=== PATIENT | female | born 1935 | race Caucasian/White ===

== ENCOUNTER 2019-02-08 15:38 | Inpatient (IN) | payer MEDICARE, OTHER ==
[~2019-02-08] VITALS: Ht 165.1 cm; Wt 70.7 kg
[~2019-02-08 15:38] MED LIST: ALIR150P SQ; BUSP10TA2 PO; CARV3.1260 PO; CHOL100062 PO; MAGN27TA4 PO; NIFE30TA23 PO; OLME20TA20 PO; OMEG1CAP2 PO; RANO10002 PO; RIVA10TA PO; SODI1TAB2 PO
[2019-02-08] MEDS ORDERED: SOD CHLORIDE 0.9% 500 ML IV STA (15:54)
[2019-02-08] MEDS ORDERED: KETOROLAC 15 MG INJ IV STA (15:54)
--- NOTE | 2019-02-08 15:58 | ERD ---
ER Documentation Chief Complaint Chief Complaint HPI This is an 83-year-old woman complaining of left buttock and hip pain status pos t mechanical fall while walking down her hallway with the assistance of some neighbors. She states she lost balance and fell onto her bottom and then could not get up afterwards. The episode was witnessed there was no loss of consciousness, no head or neck injury, no complaints of chest pain or shortness of breath. Patient was transported here by EMS without further complications ROS All systems reviewed and are negative except as per history of present illness. Medications Home Meds Reported Medications Buspirone Hcl* (Buspirone Hcl*) Unknown Strength Tab, 1 TAB PO BID, TAB 02/08/19 Magnesium Gluconate (Mag-G) 27 Mg Tablet, 27 MG PO BID, TAB 02/08/19 Cholecalciferol* (Vitamin D3*) 1,000 Unit Tablet, 1000 UNIT PO DAILY, TAB 02/08/19 [place]-3 Acid Ethyl Esters (Lovaza) 1 Gm Capsule, 2 GM PO BID, CAP 02/08/19 Sodium Chloride* (Sodium Chloride*) 1 Gm Tablet, 1 GM PO BID, TAB 02/08/19 Alirocumab (Praluent Pen) 150 Mg/1 Ml Pen.injctr, 150 MG SQ Q 14 DAYS 02/08/19 Ranolazine* (Ranexa*) 1,000 Mg Tab.sr.12h, 1000 MG PO Q12, TAB 02/08/19 Rivaroxaban* (Xarelto*) 10 Mg Tablet, 10 MG PO DAILY, TAB 02/08/19 Olmesartan Medoxomil (Benicar) 20 Mg Tablet, 20 MG PO DAILY, #30 TAB 02/08/19 Carvedilol* (Carvedilol*) 3.125 Mg Tablet, 3.125 MG PO BID, #60 TAB 02/08/19 Nifedipine* (Nifedipine ER*) 30 Mg Tablet.sa, 30 MG PO DAILY, TAB.SA 02/08/19 Allergies Allergies: Coded Allergies: No Known Allergy (Unverified , 02/08/19) PMhx/Soc Hypertension FmHx Family History: No diabetes Physical Exam Vitals Vital Signs Date Temp Pulse Resp B/P (MAP) Pulse Ox O2 O2 Flow FiO2 Time Delivery Rate 02/08/19 98.2 69 18 177/78 92 15:55 (111) Per nurse's records Physical Exam GENERAL: Well-developed, well-nourished, well-hydrated, in no apparent distress, looks nontoxic in appearance HEENT: Moist mucous membranes, pink conjunctiva, no cervical spine tenderness or step-off deformities NEURO: Alert and oriented 3, pupils equal round reactive to light, no focal deficits or facial asymmetry, moving all extremities the patient has trouble lifting the left lower extremity off the bed due to pain CARDIAC: Regular rate and rhythm, no murmurs rubs or gallops LUNGS: Clear bilaterally no wheezing crackles or stridor SKIN: Warm and dry to touch, no abrasions, no obvious hematomas or lacerations EXTREMITIES: No clubbing cyanosis or edema, calves are bilaterally symmetrical. Distal pulses equal and bilateral PSYCH: Normal affect without agitation or irritability Result Diagram: 02/08/19 1605 02/08/19 1604 Results 24 hrs Laboratory Tests Test 02/08/19 16:04 02/08/19 16:05 Sodium Level 135 mmol/L Potassium Level 5.0 mmol/L Chloride Level 99 mmol/L Carbon Dioxide Level 26 mmol/L Anion Gap 10 Blood Urea Nitrogen 26 mg/dl Creatinine 0.98 mg/dl Est Glomerular Filtrat Rate mL/min mL/min Glucose Level 103 mg/dl Calcium Level 9.6 mg/dl Total Bilirubin 0.5 mg/dl Direct Bilirubin 0.00 mg/dl Indirect Bilirubin 0.5 mg/dl Aspartate Amino Transf (AST/SGOT) 34 IU/L Alanine Aminotransferase (ALT/SGPT) 31 IU/L Alkaline Phosphatase 59 IU/L Troponin I < 0.012 ng/ml Total Protein 8.4 g/dl Albumin 4.3 g/dl Globulin 4.10 g/dl Albumin/Globulin Ratio 1.04 Lipase 153 U/L White Blood Count 13.3 10^3/ul Red Blood Count 4.17 10^6/ul Hemoglobin 13.8 g/dl Hematocrit 40.6 % Mean Corpuscular Volume 97.4 fl Mean Corpuscular Hemoglobin 33.1 pg Mean Corpuscular Hemoglobin Concent 34.0 g/dl Red Cell Distribution Width 13.1 % Platelet Count 179 10^3/UL Mean Platelet Volume 10.5 fl Immature Granulocytes % 0.600 % Neutrophils % 84.2 % Lymphocytes % 8.6 % Monocytes % 4.7 % Eosinophils % 1.4 % Basophils % 0.5 % Nucleated Red Blood Cells % 0.0 /100WBC Immature Granulocytes # 0.080 10^3/ul Neutrophils # 11.2 10^3/ul Lymphocytes # 1.1 10^3/ul Monocytes # 0.6 10^3/ul Eosinophils # 0.2 10^3/ul Basophils # 0.1 10^3/ul Nucleated Red Blood Cells # 0.0 10^3/ul Current Medications Medications Dose Sig/Anaya Start Time Status Last (Trade) Ordered Route PRN Stop Time Admin Dose Reason Admin Sodium 500 ml @ Q1H STAT 02/08/19 DC 02/08/19 Chloride 500 mls/hr IV 15:54 16:37 02/08/19 16:53 Ketorolac 15 mg ONCE STAT 02/08/19 DC 02/08/19 Tromethamine IV 15:54 16:37 (Toradol) 02/08/19 15:56 Procedures/MDM IV line was established patient was placed on cardiac rn rhythm strip revealed a sinus rhythm at about 80 bpm with upright P and T waves. Patient was afebrile Administered 500 cc normal saline IV and Toradol 15 mg IV. EKG performed, read by me revealed a normal sinus rhythm at 67 bpm, left axis deviation, first-degree AV block, right ventricular conduction delay QRS duration 102 ms, no concerning ST elevations or depressions noted One AP view of the chest performed, read by me reveals no acute infiltrates, normal mediastinum, sharp costophrenic and cardiac borders, no air under the diaphragm. Otherwise unremarkable chest x-ray. Three-view x-ray of the left hip was performed, read by me reveals left inferior pubic ramus fracture transverse, minimally displaced, no other fracture dislocation noted X-ray Pelvis 1V Interpreted by me: Bones: Left inferior ramus fracture Joints: No dislocation Foreign body: None CBC and electrolytes were normal, liver function tests are normal, troponin was negative Orthopedic on-call was consulted, patient will be admitted to [facility] for continued medical management and surgical consultation. Departure Diagnosis: Primary Impression: Inferior pubic ramus fracture Encounter type: initial encounter Fracture type: closed Laterality: left Qualified Codes: S32.592A - Other specified fracture of left pubis, initial encounter for closed fracture Additional Impression: Unable to ambulate Condition: LUANNE Quinteros MD Feb 08, 2019 15:57
[2019-02-08] MEDS ORDERED: ACETAMINOPHEN 325 MG TAB PO PRN (19:00)
[2019-02-08] MEDS ORDERED: ONDANSETRON 4 MG INJ IV PRN (19:00)
[2019-02-08] MEDS ORDERED: NACL 0.9% 3 ML SYG IV SCH (19:00)
[2019-02-08] MEDS ORDERED: CEFTRIAXONE 1 GM/50 ML (PMX) 50 ML IVPB ONE (22:00)
[2019-02-08 22:45] VITALS: Ht 165.1 cm; Wt 70.7 kg
[2019-02-08 22:50] VITALS: BP 160/75; PULSE 75; RESP 18
--- NOTE | 2019-02-08 23:49 | HP ---
Date/Time of Note Date/Time of Note DATE: 02/08/19 TIME: 23:49 Assessment/Plan VTE Prophylaxis Pharmacological prophylaxis: heparin Lines/Catheters IV Catheter Type (from Nrsg): Saline Lock Assessment/Plan Assessment/Plan 1. Right superior pubic ramus fracture: Status post fall -Pain management -Awaiting Ortho evaluation 2. Reported " shaking" of both upper and lower extremities: ? Seizure -Patient is actually supposed to have an MRI of the brain as outpatient next week -Obtain head CT and MRI of the brain especially given reported injury to left side of her head when she fell down -EEG 3. UTI -IV antibiotic, IV fluid -Follow-up culture results 4. Leukocytosis: Secondary to UTI and reactive from #1 5. Atrial fibrillation: Sinus, rate controlled -Continue home med -Hold Xarelto until Ortho evaluation 6. Hypertension: Adjust BP meds as needed 7. CHF, chronic -Follow-up 2D echo results -Continue home med Result Diagram: 02/08/19 1605 02/08/19 1604 Results 24hrs Laboratory Tests Test 02/08/19 16:04 02/08/19 16:05 02/08/19 18:20 Sodium Level 135 Potassium Level 5.0 Chloride Level 99 Carbon Dioxide Level 26 Anion Gap 10 Blood Urea Nitrogen 26 H Creatinine 0.98 Est Glomerular Filtrat Rate mL/min Glucose Level 103 Calcium Level 9.6 Total Bilirubin 0.5 Direct Bilirubin 0.00 Indirect Bilirubin 0.5 Aspartate Amino 34 Transf (AST/SGOT) Alanine 31 Aminotransferase (ALT/SGPT) Alkaline Phosphatase 59 Troponin I < 0.012 Total Protein 8.4 H Albumin 4.3 Globulin 4.10 H Albumin/Globulin Ratio 1.04 Lipase 153 White Blood Count 13.3 H Red Blood Count 4.17 L Hemoglobin 13.8 Hematocrit 40.6 Mean Corpuscular Volume 97.4 Mean Corpuscular Hemoglobin 33.1 H Mean Corpuscular 34.0 Hemoglobin Concent Red Cell Distribution Width 13.1 Platelet Count 179 Mean Platelet Volume 10.5 H Immature Granulocytes % 0.600 H Neutrophils % 84.2 H Lymphocytes % 8.6 L Monocytes % 4.7 Eosinophils % 1.4 Basophils % 0.5 Nucleated Red Blood Cells % 0.0 Immature Granulocytes # 0.080 H Neutrophils # 11.2 H Lymphocytes # 1.1 Monocytes # 0.6 Eosinophils # 0.2 Basophils # 0.1 Nucleated Red Blood Cells # 0.0 Urine Color YELLOW Urine Clarity SLIGHTLY CLOUDY A Urine pH 7.0 Urine Specific [place] 1.005 Urine Ketones NEGATIVE Urine Nitrite NEGATIVE Urine Bilirubin NEGATIVE Urine Urobilinogen NEGATIVE Urine Leukocyte Esterase 2+ H Urine Microscopic RBC 3 Urine Microscopic WBC 37 H Urine Squamous MODERATE Epithelial Cells Urine Bacteria FEW A Urine Hemoglobin 1+ H Urine Glucose NEGATIVE Urine Total Protein NEGATIVE HPI/ROS Admit Date/Time Admit Date/Time Feb 08, 2019 at 17:46 Hx of Present Illness Patient is an 83-year-old female with a history of hypertension, atrial fibrillation on Xarelto, CHF who was brought to the ER complaining of left hip pain status post fall. Patient felt dizzy and felt her leg gave out before she fell. She also reported having had generalized tremor in both upper and lower extremities. She attempted to sit on the chair, but it broke and she fell. She felt pain on the left side of her hip. She also reported hitting the left side of her head. Denied loss of consciousness. Patient reported that she has been having this tremors and frequent falls for quite some time now. She is actually supposed to have an MRI of the brain tomorrow somewhere in [place]. When presented to ER, blood pressure was 177/78. WBC 13.3. UA consistent with UTI. X-ray shows left superior pubic ramus fracture. Chest x-ray shows mild cardiomegaly and mild pulmonary vascular congestion. PMH/Family/Social Past Medical History Medical History: other (See HPI) Medications Current Medications IV Flush (NS 3 ml) 3 ml PER PROTOCOL IV ; Start 02/08/19 at 19:00 Ondansetron HCl (Zofran Inj) 4 mg Q6H PRN IV NAUSEA/VOMITING; Start 02/08/19 at 19:00 Acetaminophen (Tylenol Tab) 650 mg Q6H PRN PO .PAIN 1-3 OR TEMP; Start 02/08/19 at 19:00 Acetaminophen/ Hydrocodone Bitart ([place] (5/325)) 1 tab Q6H PRN PO .PAIN 4-6; Start 02/08/19 at 19:00 Morphine Sulfate (morphine) 2 mg Q4H PRN IV .PAIN 7-10; Start 02/08/19 at 19:00 Coded Allergies: No Known Allergy (Unverified , 02/08/19) Past Surgical History Past Surgical Hx: other (HPI) Family History Significant Family History: no pertinent family hx Social History Alcohol Use: none Smoking Status: Never smoker Drug Use: none Exam/Review of Systems Vital Signs Vitals Vital Signs Date Temp Pulse Resp B/P (MAP) Pulse Ox O2 O2 Flow FiO2 Time Delivery Rate 02/08/19 71 16 144/73 99 Nasal 2.0 22:21 (96) Cannula 02/08/19 98.0 21:57 Exam Constitutional: other (No acute distress) Head: normocephalic, atraumatic Eyes: EOMI, PERRL Respiratory: clear to auscultation, normal air movement Cardiovascular: regular rate and rhythm, nl pulses Gastrointestinal: soft, non-tender Extremities: other (Minimal left hip pain pain elicited with movement of left lower extremity) ZEKE SOMMER MD Feb 08, 2019 23:49
[2019-02-09 08:03] VITALS: BP 118/56; PULSE 70; RESP 18
[2019-02-09] MEDS ORDERED: LOSARTAN 50 MG TAB PO SCH ×2 (09:00→21:00)
[2019-02-09] MEDS ORDERED: HEPARIN 5,000 UNIT/1 ML VIAL SC SCH (09:00)
[2019-02-09] MEDS: SODIUM CHLORIDE 1 GM TAB PO SCH ×2 (09:42→21:48)
[2019-02-09] MEDS: MAGNESIUM CHLORIDE (SR) 64 MG TAB PO SCH ×2 (09:42→21:49)
[2019-02-09] MEDS: FISH OIL 1,000 MG CAP PO SCH ×2 (09:42→21:50)
[2019-02-09] MEDS: NIFEdipine (XL) 30 MG TAB PO SCH (09:43)
[2019-02-09] MEDS: RANOLAZINE (SR) 500 MG TAB PO SCH ×2 (09:43→21:49)
[2019-02-09] MEDS: HYDROCODONE/APAP (5/325) TAB PO PRN ×2 (09:57→18:17)
--- NOTE | 2019-02-09 11:29 | PN ---
Date/Time of Note Date/Time of Note DATE: 02/09/19 TIME: 11:28 Assessment/Plan VTE Prophylaxis Risk score (from Nsg)>0 risk: 10 SCD applied (from Nsg): Yes Pharmacological prophylaxis: LMWH, other (xarelto on hold) Lines/Catheters IV Catheter Type (from Nrsg): Saline Lock Urinary Cath still in place: No Assessment/Plan Hospital Course S : has pain with movement but is ok if she's lying still O: Constitutional: alert, oriented, pleasant, elderly, comfortable? Head: atraumatic, normocephalic Neck: non-tender, supple Respiratory: clear to auscultation Cardiovascular: regular rate and rhythm Gastrointestinal: S/ NT / ND / +BS Extremities: no edema, good radial pulses, no limb length discrepancy assessment and plan: 83-year-old female who was brought into the emergency room after an accidental fall currently admitted and managed as follows: 1. Status post accidental fall with concern for nondisplaced fracture left superior pubic rami 2. Left-sided hip pain likely secondary to #1 3. Chronic dyslipidemia 4. Paroxysmal atrial fibrillation, currently sinus and rate controlled -Patient on Xarelto for anticoagulation but this is on hold until orthopedic review 5. Chronic vitamin D deficiency on supplement 6. Chronic hypomagnesemia on supplementation 7. Chronic hyponatremia on salt tablets 8. Coronary disease on Ranexa 8. Chronic depression on BuSpar Plan: -Continue supportive care and pain control, try to optimize patient's pain regimen -Also ensure a good bowel regimen -Spoke with on orthopedic surgery, Dr. Kolb. He will reevaluate patient, but after reviewing imaging, has authorized patient for ambulation with physical therapy and weightbearing as tolerated. Also get acute rehab eval Continue all other supportive care Adjust antihypertensives for optimization Further interventions per course. Result Diagram: 02/09/19 0507 02/09/19 0507 Results 24hrs Laboratory Tests Test 02/08/19 16:04 02/08/19 16:05 02/08/19 18:20 02/09/19 05:07 Sodium Level 135 135 Potassium Level 5.0 4.2 Chloride Level 99 100 Carbon Dioxide 26 29 Level Anion Gap 10 6 Blood Urea 26 H 21 H Nitrogen Creatinine 0.98 0.82 Est Glomerular Filtrat Rate mL/min Glucose Level 103 120 Calcium Level 9.6 9.2 Total Bilirubin 0.5 1.1 Direct Bilirubin 0.00 0.00 Indirect 0.5 1.1 Bilirubin Aspartate Amino 34 27 Transf (AST/SGOT) Alanine 31 24 Aminotransferase (ALT/SGPT) Alkaline 59 53 Phosphatase Troponin I < 0.012 Total Protein 8.4 H 7.6 Albumin 4.3 3.7 Globulin 4.10 H 3.90 H Albumin/Globulin 1.04 0.94 Ratio Lipase 153 White Blood Count 13.3 H 7.7 # Red Blood Count 4.17 L 4.28 Hemoglobin 13.8 14.2 Hematocrit 40.6 41.8 Mean Corpuscular 97.4 97.7 Volume Mean Corpuscular 33.1 H 33.2 H Hemoglobin Mean Corpuscular 34.0 34.0 Hemoglobin Concen t Red Cell 13.1 13.1 Distribution Width Platelet Count 179 180 Mean Platelet 10.5 H 11.1 H Volume Immature 0.600 H 0.400 Granulocytes % Neutrophils % 84.2 H 77.1 H Lymphocytes % 8.6 L 12.1 L Monocytes % 4.7 6.0 Eosinophils % 1.4 3.7 Basophils % 0.5 0.7 Nucleated Red 0.0 0.0 Blood Cells % Immature 0.080 H 0.030 Granulocytes # Neutrophils # 11.2 H 5.9 Lymphocytes # 1.1 0.9 Monocytes # 0.6 0.5 Eosinophils # 0.2 0.3 Basophils # 0.1 0.1 Nucleated Red 0.0 0.0 Blood Cells # Urine Color YELLOW Urine Clarity SLIGHTLY CLOUDY A Urine pH 7.0 Urine Specific 1.005 [place] Urine Ketones NEGATIVE Urine Nitrite NEGATIVE Urine Bilirubin NEGATIVE Urine NEGATIVE Urobilinogen Urine Leukocyte 2+ H Esterase Urine Microscopic 3 RBC Urine Microscopic 37 H WBC Urine Squamous MODERATE Epithelial Cells Urine Bacteria FEW A Urine Hemoglobin 1+ H Urine Glucose NEGATIVE Urine Total NEGATIVE Protein Hemoglobin A1c 4.9 Magnesium Level 2.0 Triglycerides 81 Level Cholesterol Level 204 H LDL Cholesterol, 134 Calculated HDL Cholesterol 54 Cholesterol/HDL 3.7 Ratio Thyroid 1.430 Stimulating Hormone (TSH) Exam/Review of Systems Exam Vitals Vital Signs Date Temp Pulse Resp B/P (MAP) Pulse Ox O2 O2 Flow FiO2 Time Delivery Rate 02/09/19 98.1 70 18 118/56 98 Room Air 08:03 (76) 02/08/19 2.0 22:21 Intake and Output 02/08/19 02/08/19 02/09/19 1515:00 23:00 07:00 IntakeIntake Total 50 ml 100 ml OutputOutput Total 800 ml BalanceBalance 50 ml -700 ml Results Results 24hrs Laboratory Tests Test 02/08/19 16:04 02/08/19 16:05 02/08/19 18:20 02/09/19 05:07 Sodium Level 135 135 Potassium Level 5.0 4.2 Chloride Level 99 100 Carbon Dioxide 26 29 Level Anion Gap 10 6 Blood Urea 26 H 21 H Nitrogen Creatinine 0.98 0.82 Est Glomerular Filtrat Rate mL/min Glucose Level 103 120 Calcium Level 9.6 9.2 Total Bilirubin 0.5 1.1 Direct Bilirubin 0.00 0.00 Indirect 0.5 1.1 Bilirubin Aspartate Amino 34 27 Transf (AST/SGOT) Alanine 31 24 Aminotransferase (ALT/SGPT) Alkaline 59 53 Phosphatase Troponin I < 0.012 Total Protein 8.4 H 7.6 Albumin 4.3 3.7 Globulin 4.10 H 3.90 H Albumin/Globulin 1.04 0.94 Ratio Lipase 153 White Blood Count 13.3 H 7.7 # Red Blood Count 4.17 L 4.28 Hemoglobin 13.8 14.2 Hematocrit 40.6 41.8 Mean Corpuscular 97.4 97.7 Volume Mean Corpuscular 33.1 H 33.2 H Hemoglobin Mean Corpuscular 34.0 34.0 Hemoglobin Concen t Red Cell 13.1 13.1 Distribution Width Platelet Count 179 180 Mean Platelet 10.5 H 11.1 H Volume Immature 0.600 H 0.400 Granulocytes % Neutrophils % 84.2 H 77.1 H Lymphocytes % 8.6 L 12.1 L Monocytes % 4.7 6.0 Eosinophils % 1.4 3.7 Basophils % 0.5 0.7 Nucleated Red 0.0 0.0 Blood Cells % Immature 0.080 H 0.030 Granulocytes # Neutrophils # 11.2 H 5.9 Lymphocytes # 1.1 0.9 Monocytes # 0.6 0.5 Eosinophils # 0.2 0.3 Basophils # 0.1 0.1 Nucleated Red 0.0 0.0 Blood Cells # Urine Color YELLOW Urine Clarity SLIGHTLY CLOUDY A Urine pH 7.0 Urine Specific 1.005 [place] Urine Ketones NEGATIVE Urine Nitrite NEGATIVE Urine Bilirubin NEGATIVE Urine NEGATIVE Urobilinogen Urine Leukocyte 2+ H Esterase Urine Microscopic 3 RBC Urine Microscopic 37 H WBC Urine Squamous MODERATE Epithelial Cells Urine Bacteria FEW A Urine Hemoglobin 1+ H Urine Glucose NEGATIVE Urine Total NEGATIVE Protein Hemoglobin A1c 4.9 Magnesium Level 2.0 Triglycerides 81 Level Cholesterol Level 204 H LDL Cholesterol, 134 Calculated HDL Cholesterol 54 Cholesterol/HDL 3.7 Ratio Thyroid 1.430 Stimulating Hormone (TSH) Medications Medication Current Medications IV Flush (NS 3 ml) 3 ml PER PROTOCOL IV ; Start 02/08/19 at 19:00 Ondansetron HCl (Zofran Inj) 4 mg Q6H PRN IV NAUSEA/VOMITING; Start 02/08/19 at 19:00 Acetaminophen (Tylenol Tab) 650 mg Q6H PRN PO .PAIN 1-3 OR TEMP; Start 02/08/19 at 19:00 Acetaminophen/ Hydrocodone Bitart ([place] (5/325)) 1 tab Q6H PRN PO .PAIN 4-6 Last administered on 02/09/19 09:57; Admin Dose 1 TAB; Start 02/08/19 at 19:00 Morphine Sulfate (morphine) 2 mg Q4H PRN IV .PAIN 7-10; Start 02/08/19 at 19:00 Ceftriaxone Sodium 50 ml @ 100 mls/hr DAILY@2200 IVPB ; Start 02/09/19 at 22:00 Carvedilol (Coreg) 3.125 mg BID PO Last administered on 02/09/19 09:43; Admin Dose 3.125 MG; Start 02/09/19 at 09:00 Nifedipine (Procardia Xl) 30 mg DAILY PO Last administered on 02/09/19 09:43; Admin Dose 30 MG; Start 02/09/19 at 09:00 Ranolazine (Ranexa) 1,000 mg Q12 PO Last administered on 02/09/19 09:43; Admin Dose 1,000 MG; Start 02/09/19 at 09:00 Sodium Chloride (Nacl) 1 gm BID PO Last administered on 02/09/19 09:42; Admin Dose 1 GM; Start 02/09/19 at 09:00 Magnesium Chloride (Mag 64) 64 mg BID PO Last administered on 02/09/19 09:42; Admin Dose 64 MG; Start 02/09/19 at 09:00 Fish Oil (Fish Oil) 2,000 mg BID PO Last administered on 02/09/19at 09:42; Admin Dose 2,000 MG; Start 02/09/19 at 09:00 Heparin Sodium (Porcine) (Heparin (5000 Units/1ml)) 5,000 unit BID SC Last administered on 02/09/19at 09:46; Admin Dose 5,000 UNIT; Start 02/09/19 at 09:00 Losartan Potassium (Cozaar) 100 mg HS PO ; Start 02/09/19 at 21:00 ANDRESSA MCGEE Feb 09, 2019 11:29
[2019-02-09] MEDS: morphine 2 MG INJ IV PRN ×2 (12:22→17:05)
[2019-02-09] MEDS ORDERED: hydrALAzine 20 MG INJ IV PRN (13:00)
[2019-02-09] MEDS: DOCUSATE SODIUM 250 MG CAP PO SCH (13:34)
[2019-02-09 14:26] VITALS: BP 119/58; PULSE 67; RESP 18
[2019-02-09 20:27] VITALS: BP 114/59; PULSE 73; RESP 18
[2019-02-09] MEDS ORDERED: CEFTRIAXONE 1 GM/50 ML (PMX) 50 ML IVPB SCH (22:00)
[2019-02-10] VITALS (8 sets, daily range): BP systolic 108–140; BP diastolic 55–67; PULSE 61–78; RESP 15–20
[2019-02-10] MEDS: RANOLAZINE (SR) 500 MG TAB PO SCH (08:28)
[2019-02-10] MEDS: MAGNESIUM CHLORIDE (SR) 64 MG TAB PO SCH (08:28)
[2019-02-10] MEDS: DOCUSATE SODIUM 250 MG CAP PO SCH (08:28)
[2019-02-10] MEDS: SODIUM CHLORIDE 1 GM TAB PO SCH (08:31)
[2019-02-10] MEDS: FISH OIL 1,000 MG CAP PO SCH (08:31)
[2019-02-10] MEDS: NIFEdipine (XL) 30 MG TAB PO SCH (08:32)
[2019-02-10] MEDS: HYDROCODONE/APAP (5/325) TAB PO PRN (08:33)
[2019-02-10] MEDS ORDERED: ENOXAPARIN 40 MG/0.4 ML SYG SC SCH (09:00)
--- NOTE | 2019-02-10 12:06 | CONSI ---
Assessment/Plan Assessment/Plan Assessment/Plan (Recall) 83 F c/ reported Hx of afib and other comorbidities, who presents for evaluation following a recurrent fall. She notes episodic tremors that precipitate her falls, for which neurology is consulted. The clinical picture raises highest suspicion for recurrent syncope. Epilepsy is less likely.. MRI brain is reassuringly negative for acute intracranial pathology P: Orthostatic vitals Await EEG Consider asa daily moving forward, for primary stroke prevention in the setting of afib and frequent falls PT/OT as necessary Other management and supportive care per primary Will follow Consultation Date/Type/Reason Admit Date/Time Feb 08, 2019 at 17:46 Type of Consult Neurology Reason for Consultation tremors Requesting Provider: ANDRESSA MCGEE Date/Time of Note DATE: 02/10/19 TIME: 12:01 Hx of Present Illness 83 F c/ Hx fo afib, and other comorbidities, who presents for evaluation following a recurrent fall. Notes once monthly for more than 1 year episodes of dizziness, tremors, and falls.. First instance occurred in the context of severe hypernatremia.. Denies LOC.. Denies focal neurologic Sx otherwise. per HPI Objective Exam Vitals Vital Signs Date Temp Pulse Resp B/P (MAP) Pulse Ox O2 O2 Flow FiO2 Time Delivery Rate 02/10/19 98.6 69 20 126/60 95 11:19 (83) 02/10/19 Room Air 01:53 02/08/19 2.0 22:21 Intake and Output 02/09/19 02/09/19 02/10/19 1515:00 23:00 07:00 IntakeIntake Total 440 ml 290 ml 400 ml BalanceBalance 440 ml 290 ml 400 ml Exam PE: Gen Appearance: No Apparent Distress HEENT: Normocephalic Cardiovascular: Regular rate Abdomen: Soft Extremities: Dry NE: The patient was alert and oriented. Language was normal. Fund of knowledge was normal. Pupils were equal and reactive to light. There was no afferent pupillary defect. Visual orona were normal. Funduscopic examination was limited. Extra-ocular movements were full. Ptosis was absent. There was no nystagmus. Facial sensation was normal. Face was symmetric with normal strength. Hearing was intact. Palate movements were normal. Neck strength was normal. There was normal tongue bulk and speed of movement. Tone was normal. Muscle bulk was normal. I did not see fasciculations. Arms were strong; left leg was somewhat pain limited; right leg was strong. Vibration sensation was normal. Temperature and pinprick sensation was normal. Rapid alternating movements were normal. There was no dysmetria. There was no intention tremor. Gait was deferred due to bedrest. Arm and leg reflexes were symmetric. Jauregui's sign was absent. Plantar responses were flexor. Results Result Diagram: 02/10/1917 02/10/19 0517 Results 24hrs Laboratory Tests Test 02/10/19 05:17 White Blood Count 7.2 Red Blood Count 3.71 L Hemoglobin 12.4 Hematocrit 36.5 L Mean Corpuscular Volume 98.4 Mean Corpuscular Hemoglobin 33.4 H Mean Corpuscular Hemoglobin Concent 34.0 Red Cell Distribution Width 13.5 Platelet Count 144 Mean Platelet Volume 11.3 H Immature Granulocytes % 0.400 Neutrophils % 68.1 Lymphocytes % 16.7 Monocytes % 7.1 Eosinophils % 6.7 Basophils % 1.0 Nucleated Red Blood Cells % 0.0 Immature Granulocytes # 0.030 Neutrophils # 4.9 Lymphocytes # 1.2 Monocytes # 0.5 Eosinophils # 0.5 Basophils # 0.1 Nucleated Red Blood Cells # 0.0 Sodium Level 138 Potassium Level 4.4 Chloride Level 105 Carbon Dioxide Level 28 Anion Gap 5 Blood Urea Nitrogen 21 H Creatinine 0.81 Est Glomerular Filtrat Rate mL/min Glucose Level 104 Calcium Level 8.8 Phosphorus Level 3.0 Magnesium Level 1.9 Past Medical History Medical History: other (See HPI) Home Meds Reported Medications Buspirone Hcl* (Buspirone Hcl*) Unknown Strength Tab, 1 TAB PO BID, TAB 02/08/19 Magnesium Gluconate (Mag-G) 27 Mg Tablet, 27 MG PO BID, TAB 02/08/19 Cholecalciferol* (Vitamin D3*) 1,000 Unit Tablet, 1000 UNIT PO DAILY, TAB 02/08/19 [place]-3 Acid Ethyl Esters (Lovaza) 1 Gm Capsule, 2 GM PO BID, CAP 02/08/19 Sodium Chloride* (Sodium Chloride*) 1 Gm Tablet, 1 GM PO BID, TAB 02/08/19 Alirocumab (Praluent Pen) 150 Mg/1 Ml Pen.injctr, 150 MG SQ Q 14 DAYS 02/08/19 Ranolazine* (Ranexa*) 1,000 Mg Tab.sr.12h, 1000 MG PO Q12, TAB 02/08/19 Rivaroxaban* (Xarelto*) 10 Mg Tablet, 10 MG PO DAILY, TAB 02/08/19 Olmesartan Medoxomil (Benicar) 20 Mg Tablet, 20 MG PO DAILY, #30 TAB 02/08/19 Carvedilol* (Carvedilol*) 3.125 Mg Tablet, 3.125 MG PO BID, #60 TAB 02/08/19 Nifedipine* (Nifedipine ER*) 30 Mg Tablet.sa, 30 MG PO DAILY, TAB.SA 02/08/19 Medications Current Medications IV Flush (NS 3 ml) 3 ml PER PROTOCOL IV ; Start 02/08/19 at 19:00 Ondansetron HCl (Zofran Inj) 4 mg Q6H PRN IV NAUSEA/VOMITING; Start 02/08/19 at 19:00 Acetaminophen (Tylenol Tab) 650 mg Q6H PRN PO .PAIN 1-3 OR TEMP; Start 02/08/19 at 19:00 Acetaminophen/ Hydrocodone Bitart ([place] (5/325)) 1 tab Q6H PRN PO .PAIN 4-6 Last administered on 02/10/19 08:33; Admin Dose 1 TAB; Start 02/08/19 at 19:00 Morphine Sulfate (morphine) 2 mg Q4H PRN IV .PAIN 7-10 Last administered on 02/09/19at 17:05; Admin Dose 2 MG; Start 02/08/19 at 19:00 Ceftriaxone Sodium 50 ml @ 100 mls/hr DAILY@2200 IVPB Last administered on 02/09/19at 21:44; Admin Dose 100 MLS/HR; Start 02/09/19 at 22:00 Carvedilol (Coreg) 3.125 mg BID PO Last administered on 02/10/19 08:32; Admin Dose 3.125 MG; Start 02/09/19 at 09:00 Nifedipine (Procardia Xl) 30 mg DAILY PO Last administered on 02/10/19 08:32; Admin Dose 30 MG; Start 02/09/19 at 09:00 Ranolazine (Ranexa) 1,000 mg Q12 PO Last administered on 02/10/19 08:28; Admin Dose 1,000 MG; Start 02/09/19 at 09:00 Sodium Chloride (Nacl) 1 gm BID PO Last administered on 02/10/19 08:31; Admin Dose 1 GM; Start 02/09/19 at 09:00 Magnesium Chloride (Mag 64) 64 mg BID PO Last administered on 02/10/19 08:28; Admin Dose 64 MG; Start 02/09/19 at 09:00 Fish Oil (Fish Oil) 2,000 mg BID PO Last administered on 02/10/19 08:31; Admin Dose 2,000 MG; Start 02/09/19 at 09:00 Losartan Potassium (Cozaar) 100 mg HS PO Last administered on 02/09/19 21:50; Admin Dose 100 MG; Start 02/09/19 at 21:00 Docusate Sodium (Colace) 250 mg DAILY PO Last administered on 02/10/19 08:28; Admin Dose 250 MG; Start 02/09/19 at 13:00 Enoxaparin Sodium (Lovenox) 40 mg DAILY SC Last administered on 02/10/19 08:33; Admin Dose 40 MG; Start 02/10/19 at 09:00 Hydralazine HCl (Apresoline) 10 mg Q6H PRN IV abp>160mmhg; Start 02/09/19 at 13:00 Allergies: Coded Allergies: No Known Allergy (Unverified , 02/08/19) Past Surgical History Past Surgical Hx: other (HPI) Social History Alcohol Use: none Smoking Status: Never smoker Drug Use: none MAGGIE LARA Feb 10, 2019 12:06
[2019-02-10] MEDS ORDERED: HYDROCODONE/APAP (7.5/325) TAB PO PRN (12:30)
--- NOTE | 2019-02-10 13:16 | EEG ---
EEG NOTE Report Details DATE OF TEST: 02/09/19 HISTORY: The patient is a 83-year-old F who presents with episodic shaking and falls. This EEG is requested to evaluate for seizures. SEDATION: None. CONDITIONS OF RECORDING: This EEG was recorded digitally on the [employer] machine, using the International 10-20 System of electrodes plus anterior temporals and [place]. STATES SAMPLED: Wakefulness through stage II sleep. FINDINGS: During wakefulness, there is a 8 Hz posterior dominant rhythm, which attenuates normally with eye opening. There is a normal [id number] frequency-amplitude gradient. The remainder of the awake background is normal. Photic stimulation does not elicit any definite driving responses or epil eptiform discharges. Hyperventilation was not performed. The patient passed into sleep, reaching stage II, characterized by normal and symmetrical vertex waves and spindles. No asymmetries, focal abnormalities or epileptiform discharges were seen. IMPRESSION: Normal electroencephalogram during wakefulness and sleep. MAGGIE LARA Feb 10, 2019 13:16
--- NOTE | 2019-02-10 14:54 | DS ---
Date/Time of Note Date/Time of Note DATE: 02/10/19 TIME: 14:53 Discharge Summary Admission/Discharge Info Admit Date/Time Feb 08, 2019 at 17:46 Discharge Date/Time Discharge Diagnosis 83-year-old female who was brought into the emergency room after an accidental fall currently admitted and managed as follows: 1. Status post accidental fall with concern for nondisplaced fracture left superior pubic rami: non surgical per ortho 2. Left-sided hip pain likely secondary to #1 3. Chronic dyslipidemia 4. Paroxysmal atrial fibrillation, currently sinus and rate controlled -Patient on Xarelto for anticoagulation 5. Chronic vitamin D deficiency on supplement 6. Chronic hypomagnesemia on supplementation 7. Chronic hyponatremia on salt tablets 8. Coronary disease on Ranexa 8. Chronic depression on BuSpar . Patient Condition: Stable Consults Ortho:In freeman Kolb MD Neurology: Whitney Mayen MD . Hospital Course 81-year-old female with history of recurrent falls for the last 1-1/2 years who was brought in after another fall with left hip pain. She was found by imaging to have acute nondisplaced fractures in the mid left inferior pubic ramus and a high left superior pubic ramus. She also has some age-indeterminate nondisplaced fractures in the lateral left sacral ala and at the anterior inferior lateral right sacral ala. her fracturees were deemed non surgical by orthopedic surgery. The patient reported recurrent falls for more than a year and so neurology consultation was obtained.EEG was done that was normal. Patient was started on aspirin daily for primary stroke prevention in the setting of A. fib and frequent falls on recommended for orthopedic physical therapy per neurology. She was then evaluated for acute rehabilitation unit and accepted. She was also evaluated by orthopedic surgery cleared her for rehab. She is being discharged to the acute rehabilitation unit for continued management at this time. . Home Meds Reported Medications Buspirone Hcl* (Buspirone Hcl*) Unknown Strength Tab, 1 TAB PO BID, TAB 02/08/19 Magnesium Gluconate (Mag-G) 27 Mg Tablet, 27 MG PO BID, TAB 02/08/19 Cholecalciferol* (Vitamin D3*) 1,000 Unit Tablet, 1000 UNIT PO DAILY, TAB 02/08/19 [place]-3 Acid Ethyl Esters (Lovaza) 1 Gm Capsule, 2 GM PO BID, CAP 02/08/19 Sodium Chloride* (Sodium Chloride*) 1 Gm Tablet, 1 GM PO BID, TAB 02/08/19 Alirocumab (Praluent Pen) 150 Mg/1 Ml Pen.injctr, 150 MG SQ Q 14 DAYS 02/08/19 Ranolazine* (Ranexa*) 1,000 Mg Tab.sr.12h, 1000 MG PO Q12, TAB 02/08/19 Rivaroxaban* (Xarelto*) 10 Mg Tablet, 10 MG PO DAILY, TAB 02/08/19 Olmesartan Medoxomil (Benicar) 20 Mg Tablet, 20 MG PO DAILY, #30 TAB 02/08/19 Carvedilol* (Carvedilol*) 3.125 Mg Tablet, 3.125 MG PO BID, #60 TAB 02/08/19 Nifedipine* (Nifedipine ER*) 30 Mg Tablet.sa, 30 MG PO DAILY, TAB.SA 02/08/19 Follow-up Plan ARU . Primary Care Provider Not On Staff Doctor Time spent on discharge: > 30 minutes Pending Labs Laboratory Tests Test 02/10/19 05:17 White Blood Count 7.2 10^3/ul (4.8-10.8) Red Blood Count 3.71 10^6/ul (4.20-5.40) Hemoglobin 12.4 g/dl (12.0-16.0) Hematocrit 36.5 % (37.0-47.0) Mean Corpuscular Volume 98.4 fl (82.0-101.0) Mean Corpuscular Hemoglobin 33.4 pg (29.0-33.0) Mean Corpuscular Hemoglobin Concent 34.0 g/dl (32.0-37.0) Red Cell Distribution Width 13.5 % (11.5-14.5) Platelet Count 144 10^3/UL (140-415) Mean Platelet Volume 11.3 fl (7.4-10.4) Immature Granulocytes % 0.400 % (0.001-0.429) Neutrophils % 68.1 % (39.0-77.0) Lymphocytes % 16.7 % (15.0-51.0) Monocytes % 7.1 % (0.0-11.0) Eosinophils % 6.7 % (0.0-7.0) Basophils % 1.0 % (0.0-2.0) Nucleated Red Blood Cells % 0.0 /100WBC (0.0-0.0) Immature Granulocytes # 0.030 10^3/ul (0.0-0.031) Neutrophils # 4.9 10^3/ul (1.6-7.5) Lymphocytes # 1.2 10^3/ul (0.8-2.9) Monocytes # 0.5 10^3/ul (0.3-0.9) Eosinophils # 0.5 10^3/ul (0.0-0.5) Basophils # 0.1 10^3/ul (0.0-0.1) Nucleated Red Blood Cells # 0.0 10^3/ul (0.0-0.0) Sodium Level 138 mmol/L (135-144) Potassium Level 4.4 mmol/L (3.5-5.1) Chloride Level 105 mmol/L (97-110) Carbon Dioxide Level 28 mmol/L (21-31) Anion Gap 5 (5-13) Blood Urea Nitrogen 21 mg/dl (7-20) Creatinine 0.81 mg/dl (0.44-1.00) Est Glomerular Filtrat Rate mL/min mL/min (>60) Glucose Level 104 mg/dl (70-220) Calcium Level 8.8 mg/dl (8.4-10.2) Phosphorus Level 3.0 mg/dl (2.5-4.9) Magnesium Level 1.9 mg/dl (1.7-2.5) ANDRESSA MCGEE Feb 10, 2019 14:54
--- NOTE | 2019-02-10 16:53 | RADRPT ---
Echocardiogram Report Patient Name: IVORY FLORESPatient ID: [id number] : 1935 (83y 4m)Study Date: 02/09/2019 11:23:06 AM Gender: FAccession #: [id number] Tech: SN Location: [facility] 2 Ref.Physician: ZEKE SOMMER Height(Cm): BSA: Weight(Kg): Quality: AdequateOrder Physician: ZEKE SOMMER Account #: Procedures: Echocardiographic Report: Transthoracic echocardiogram with complete 2D, M-Mode, and doppler examination. Indications: Pre-op. Measurements: 2D/M Mode Doppler Measurement Value Normal Range Measurement Value Normal Range LVIDd 2D 3.1 [ 3.8 - 5.2 ] cm AV Peak Cesar 1.7 [ 100.0 - 170.0 ] cm/sec LVIDs 2D 2.0 [ 2.2 - 3.5 ] cm AV Peak PG 12.0 [ 2.0 - 9.0 ] mmHg LVPWd 2D 1.2 [ 0.6 - 0.9 ] cm LVOT Peak Cesar 1.3 [ 70.0 - 110.0 ] cm/sec IVSd 2D 1.2 [ 0.6 - 0.9 ] cm LVOT Peak PG 7.0 [ 2.0 - 6.0 ] mmHg IVS/LVPW 2D 1.0 ratio MV E Peak Cesar 0.6 [ 60.0 - 130.0 ] cm/sec AoR Diam 2D 2.2 [ 2.3 - 3.1 ] cm MV A Peak Cesar 0.8 [ 100.0 - 120.0 ] cm/sec LA/Ao 2D 1 ratio MV E/A 0.8 [ 0.8 - 1.5 ] ratio LA Dimen 2D 2.9 [ 2.7 - 3.8 ] cm MV Decel Time 201 [ 104 - 258 ] msec MV E/A 0.8 [ 0.8 - 1.5 ] ratio TR Peak Cesar 2.5 [ 100.0 - 280.0 ] cm/sec TR Peak PG 25.0 mmHg RVSP 28.0 [ 10.0 - 36.0 ] mmHg RA Pressure 3.0 mmHg Findings: Left Ventricle: Normal left ventricular systolic function. Normal left ventricular cavity size. Left ventricular wall thickness upper limits of normal. Ejection fraction is visually estimated at 60 %. Tissue Doppler/Mitral Doppler indices are consistent with impaired relaxation (Stage I diastolic dysfunction). Right Ventricle: Normal right ventricular size. Normal right ventricular systolic function. Left Atrium: The left atrium is normal in size. Right Atrium: The right atrium is normal in size. Mitral Valve: Mild mitral leaflet calcification. Mild mitral annular calcification. Trace mitral regurgitation. Aortic Valve: No significant aortic stenosis or insufficiency. Aortic cusps appear mildly calcified. Tricuspid Valve: Normal appearance of the tricuspid valve. The estimated Peak RVSP is 28 mmHg. There is mild tricuspid regurgitation. Pericardium: Normal pericardium with no significant pericardial effusion. Left pleural effusion seen. Aorta: Normal aortic root. IVC: Normal size and normal respiratory collapse consistent with normal right atrial pressure. Conclusions: Normal left ventricular systolic function. Normal left ventricular cavity size. Left ventricular wall thickness upper limits of normal. Ejection fraction is visually estimated at 60 %. Tissue Doppler/Mitral Doppler indices are consistent with impaired relaxation (Stage I diastolic dysfunction). Mild mitral leaflet calcification. Mild mitral annular calcification. Trace mitral regurgitation. Normal appearance of the tricuspid valve. The estimated Peak RVSP is 28 mmHg. There is mild tricuspid regurgitation. Electronically Signed By: Gilbert Fabian 2019-02-10 16:52:26 PDT
== END 2019-02-10 17:30 | DRG 536 ==
LOC: E/R 15:38 → MS1 17:46
PROVIDERS: ADMIT Internal Medicine; ATTEND Family Medicine
DX: S32.592A Other specified fracture of left pubis, initial encounter for closed fracture (principal); E87.1 Hypo-osmolality and hyponatremia; N39.0 Urinary tract infection, site not specified; I11.0 Hypertensive heart disease with heart failure; I50.9 Heart failure, unspecified; I48.0 Paroxysmal atrial fibrillation; R25.1 Tremor, unspecified; E78.5 Hyperlipidemia, unspecified; E55.9 Vitamin D deficiency, unspecified; E83.42 Hypomagnesemia; F32.9 Major depressive disorder, single episode, unspecified; W18.39XA Other fall on same level, initial encounter
CPT/HCPCS: 36415; 70450; 70551; 71045; 72170; 72192; 73510; 80048; 80053; 80061; 81001; 83036; 83690; 83735; 84100; 84443; 84484; 85025; 87086; 93005; 93306; 93880; 95819; 96374; 97116; 97161; 97530; J0696; J1644; J1650; J1885; J2270; J7040

== ENCOUNTER 2019-02-10 16:39 | Inpatient (IN) | payer MEDICARE, OTHER ==
[~2019-02-10] VITALS: Ht 154.9 cm; Wt 75.0 kg
[~2019-02-10 16:39] MED LIST changes: +OLME20TA19 PO; -OLME20TA20 PO
[2019-02-10 18:00] VITALS: BP 122/63; PULSE 77; RESP 20
[2019-02-10] MEDS ORDERED: PENDING SANTYL ORDER FOR WOUND CARE XX PRN (18:00)
[2019-02-10] MEDS ORDERED: MAGNESIUM HYDROXIDE 30ML CUP PO PRN (18:00)
[2019-02-10] MEDS ORDERED: LACTULOSE 30ML CUP PO PRN (18:00)
[2019-02-10] MEDS ORDERED: ACETAMINOPHEN 325 MG TAB PO PRN (18:00)
[2019-02-10] MEDS ORDERED: BISACODYL 10 MG SUPP PR PRN (18:00)
[2019-02-10] MEDS ORDERED: HYDROCODONE/APAP (5/325) TAB PO PRN (18:30)
[2019-02-10] MEDS ORDERED: morphine 2 MG INJ IV PRN (18:30)
[2019-02-10 18:46] VITALS: Ht 154.9 cm; Wt 75.0 kg
[2019-02-10 19:49] VITALS: BP 120/64; PULSE 75; RESP 18
[2019-02-10] MEDS: FISH OIL 1,000 MG CAP PO SCH (20:49)
[2019-02-10] MEDS: MAGNESIUM CHLORIDE (SR) 64 MG TAB PO SCH (20:49)
[2019-02-10] MEDS: RANOLAZINE (SR) 500 MG TAB PO SCH (20:55)
[2019-02-10] MEDS: DOCUSATE SODIUM 100 MG CAP PO SCH (21:00)
[2019-02-10] MEDS: SENNA TAB PO SCH (21:00)
[2019-02-10] MEDS: LOSARTAN 50 MG TAB PO SCH (21:00)
[2019-02-10] MEDS: SODIUM CHLORIDE 1 GM TAB PO SCH (21:29)
[2019-02-10 21:40] VITALS: BP 106/54; PULSE 70
[2019-02-10] MEDS ORDERED: CEFTRIAXONE 1 GM/50 ML (PMX) 50 ML IVPB ONE (22:00)
[2019-02-10 23:09] VITALS: BP 110/60; PULSE 67
[2019-02-11 02:00] VITALS: BP 114/62; PULSE 72; RESP 18
[2019-02-11 07:00] VITALS: BP 146/70; PULSE 71; RESP 18
[2019-02-11] MEDS: MAGNESIUM CHLORIDE (SR) 64 MG TAB PO SCH ×2 (08:21→20:48)
[2019-02-11] MEDS: RANOLAZINE (SR) 500 MG TAB PO SCH ×2 (08:21→20:49)
[2019-02-11] MEDS: FISH OIL 1,000 MG CAP PO SCH ×2 (08:21→20:47)
[2019-02-11] MEDS: RIVAROXABAN 10 MG TABLET PO SCH (08:21)
[2019-02-11] MEDS: BUSPIRONE 10 MG TAB PO SCH (08:21)
[2019-02-11] MEDS: CHOLECALCIFEROL 1,000 UNIT TAB PO SCH (08:22)
[2019-02-11] MEDS: DOCUSATE SODIUM 100 MG CAP PO SCH ×2 (08:22→20:50)
[2019-02-11] MEDS: SODIUM CHLORIDE 1 GM TAB PO SCH ×2 (08:22→20:48)
[2019-02-11] MEDS: NIFEdipine (XL) 30 MG TAB PO SCH (08:55)
[2019-02-11] MEDS: LOSARTAN 50 MG TAB PO SCH (08:57)
[2019-02-11] MEDS ORDERED: RIVAROXABAN 10 MG TABLET PO ONE (09:00)
[2019-02-11] MEDS ORDERED: NIFEdipine (XL) 30 MG TAB PO ONE (09:00)
[2019-02-11 14:00] VITALS: BP 157/69; PULSE 67; RESP 18
[2019-02-11 20:10] VITALS: BP 121/59; PULSE 64; RESP 18
[2019-02-11] MEDS: ATORVASTATIN 10 MG TAB PO SCH (20:49)
[2019-02-11] MEDS: SENNA TAB PO SCH (20:50)
[2019-02-12 02:37] VITALS: BP 116/56; PULSE 55; RESP 17
[2019-02-12 08:00] VITALS: BP 112/55; PULSE 71; RESP 20
[2019-02-12] MEDS: OXYCODONE/ACETAMINOPHEN (5/325) TAB PO PRN (09:07)
[2019-02-12] MEDS: RIVAROXABAN 10 MG TABLET PO SCH (09:37)
[2019-02-12] MEDS: MAGNESIUM CHLORIDE (SR) 64 MG TAB PO SCH ×2 (09:38→20:26)
[2019-02-12] MEDS: RANOLAZINE (SR) 500 MG TAB PO SCH ×2 (09:38→20:26)
[2019-02-12] MEDS: SODIUM CHLORIDE 1 GM TAB PO SCH ×2 (09:39→20:26)
[2019-02-12] MEDS: FISH OIL 1,000 MG CAP PO SCH ×2 (09:39→20:25)
[2019-02-12] MEDS: NIFEdipine (XL) 30 MG TAB PO SCH ×2 (09:39→10:01)
[2019-02-12] MEDS: DOCUSATE SODIUM 100 MG CAP PO SCH ×2 (09:55→20:26)
[2019-02-12] MEDS: CHOLECALCIFEROL 1,000 UNIT TAB PO SCH (09:56)
[2019-02-12] MEDS: BUSPIRONE 10 MG TAB PO SCH (09:56)
[2019-02-12] MEDS: LOSARTAN 50 MG TAB PO SCH (09:57)
[2019-02-12 14:00] VITALS: BP 115/60; PULSE 61; RESP 18
[2019-02-12 20:00] VITALS: BP 122/62; PULSE 68; RESP 18
[2019-02-12] MEDS: ATORVASTATIN 10 MG TAB PO SCH (20:26)
[2019-02-12] MEDS: SENNA TAB PO SCH (20:26)
[2019-02-13 02:00] VITALS: BP 118/63; PULSE 72; RESP 18
[2019-02-13] MEDS: OXYCODONE/ACETAMINOPHEN (5/325) TAB PO PRN ×2 (06:49→16:11)
[2019-02-13 07:30] VITALS: BP 147/70; PULSE 68; RESP 20
[2019-02-13] MEDS: FISH OIL 1,000 MG CAP PO SCH ×2 (08:42→21:37)
[2019-02-13] MEDS: RIVAROXABAN 10 MG TABLET PO SCH (08:42)
[2019-02-13] MEDS: LOSARTAN 50 MG TAB PO SCH (08:43)
[2019-02-13] MEDS: MAGNESIUM CHLORIDE (SR) 64 MG TAB PO SCH ×2 (08:43→21:34)
[2019-02-13] MEDS: SODIUM CHLORIDE 1 GM TAB PO SCH ×2 (08:44→21:33)
[2019-02-13] MEDS: BUSPIRONE 10 MG TAB PO SCH (08:44)
[2019-02-13] MEDS: NIFEdipine (XL) 30 MG TAB PO SCH (08:44)
[2019-02-13] MEDS: CHOLECALCIFEROL 1,000 UNIT TAB PO SCH (08:44)
[2019-02-13] MEDS: RANOLAZINE (SR) 500 MG TAB PO SCH ×2 (08:45→21:33)
[2019-02-13] MEDS: DOCUSATE SODIUM 100 MG CAP PO SCH ×2 (08:47→21:33)
[2019-02-13 14:00] VITALS: BP 123/59; PULSE 60; RESP 18
[2019-02-13 19:58] VITALS: BP 130/68; PULSE 66; RESP 18
[2019-02-13] MEDS: ATORVASTATIN 20 MG TAB PO SCH (21:00)
[2019-02-13] MEDS ORDERED: PRALUENT 150 MG/ML SC SCH (21:00)
[2019-02-13] MEDS: SENNA TAB PO SCH (21:37)
[2019-02-14 02:00] VITALS: BP 122/62; PULSE 68; RESP 18
[2019-02-14 07:53] VITALS: BP 126/65; PULSE 66; RESP 18
[2019-02-14] MEDS: NIFEdipine (XL) 30 MG TAB PO SCH (08:28)
[2019-02-14] MEDS: DOCUSATE SODIUM 100 MG CAP PO SCH ×2 (08:28→20:43)
[2019-02-14] MEDS: FISH OIL 1,000 MG CAP PO SCH ×2 (08:28→20:40)
[2019-02-14] MEDS: BUSPIRONE 10 MG TAB PO SCH (08:28)
[2019-02-14] MEDS: RANOLAZINE (SR) 500 MG TAB PO SCH ×2 (08:28→20:40)
[2019-02-14] MEDS: CHOLECALCIFEROL 1,000 UNIT TAB PO SCH (08:29)
[2019-02-14] MEDS: LOSARTAN 50 MG TAB PO SCH (08:29)
[2019-02-14] MEDS: RIVAROXABAN 10 MG TABLET PO SCH (08:29)
[2019-02-14] MEDS: SODIUM CHLORIDE 1 GM TAB PO SCH ×2 (08:29→20:40)
[2019-02-14] MEDS: MAGNESIUM CHLORIDE (SR) 64 MG TAB PO SCH ×2 (08:29→20:40)
[2019-02-14 14:50] VITALS: BP 138/68; PULSE 68; RESP 17
[2019-02-14 20:00] VITALS: BP 131/73; PULSE 74; RESP 18
[2019-02-14] MEDS: ATORVASTATIN 20 MG TAB PO SCH ×2 (20:40→20:48)
[2019-02-14] MEDS: SENNA TAB PO SCH (20:43)
[2019-02-15 02:18] VITALS: BP 134/64; PULSE 67; RESP 18
[2019-02-15 07:30] VITALS: BP 136/70; PULSE 67; RESP 18
[2019-02-15] MEDS: OXYCODONE/ACETAMINOPHEN (5/325) TAB PO PRN (08:47)
[2019-02-15] MEDS: SODIUM CHLORIDE 1 GM TAB PO SCH ×2 (09:00→20:54)
[2019-02-15] MEDS: NIFEdipine (XL) 30 MG TAB PO SCH (09:57)
[2019-02-15] MEDS: MAGNESIUM CHLORIDE (SR) 64 MG TAB PO SCH ×2 (09:57→20:54)
[2019-02-15] MEDS: CHOLECALCIFEROL 1,000 UNIT TAB PO SCH (09:57)
[2019-02-15] MEDS: RIVAROXABAN 10 MG TABLET PO SCH (09:57)
[2019-02-15] MEDS: LOSARTAN 50 MG TAB PO SCH (09:57)
[2019-02-15] MEDS: DOCUSATE SODIUM 100 MG CAP PO SCH ×2 (09:58→20:55)
[2019-02-15] MEDS: RANOLAZINE (SR) 500 MG TAB PO SCH ×2 (09:58→20:54)
[2019-02-15] MEDS: FISH OIL 1,000 MG CAP PO SCH ×2 (09:59→20:53)
[2019-02-15] MEDS: BUSPIRONE 10 MG TAB PO SCH (09:59)
[2019-02-15 14:00] VITALS: BP 138/69; PULSE 64; RESP 18
[2019-02-15] MEDS ORDERED: oxyCODONE 5 MG TAB PO PRN ×3 (14:00→20:00)
[2019-02-15] MEDS ORDERED: HYDROCODONE/APAP (5/325) TAB PO PRN ×2 (14:30)
[2019-02-15 20:00] VITALS: BP 147/65; PULSE 69; RESP 18
[2019-02-15] MEDS: SENNA TAB PO SCH (20:54)
[2019-02-16 01:55] VITALS: BP 137/65; PULSE 63; RESP 18
[2019-02-16] MEDS: BUSPIRONE 10 MG TAB PO SCH (08:24)
[2019-02-16] MEDS: RIVAROXABAN 10 MG TABLET PO SCH (08:24)
[2019-02-16] MEDS: DOCUSATE SODIUM 100 MG CAP PO SCH ×2 (08:24→21:47)
[2019-02-16] MEDS: CHOLECALCIFEROL 1,000 UNIT TAB PO SCH (08:24)
[2019-02-16] MEDS: SODIUM CHLORIDE 1 GM TAB PO SCH ×2 (08:24→21:48)
[2019-02-16] MEDS: MAGNESIUM CHLORIDE (SR) 64 MG TAB PO SCH ×2 (08:24→21:47)
[2019-02-16] MEDS: FISH OIL 1,000 MG CAP PO SCH ×2 (08:24→21:47)
[2019-02-16] MEDS: RANOLAZINE (SR) 500 MG TAB PO SCH ×2 (08:25→21:48)
[2019-02-16] MEDS: NIFEdipine (XL) 30 MG TAB PO SCH (08:25)
[2019-02-16] MEDS: LOSARTAN 50 MG TAB PO SCH (08:25)
[2019-02-16 08:40] VITALS: BP 134/61; PULSE 70; RESP 18
[2019-02-16] MEDS ORDERED: HYDROCODONE/APAP (5/325) TAB PO PRN (11:30)
[2019-02-16] MEDS: HYDROCODONE/APAP (5/325) TAB PO PRN (13:41)
[2019-02-16 20:00] VITALS: BP 147/68; PULSE 71; RESP 18
[2019-02-16] MEDS: SENNA TAB PO SCH (21:47)
[2019-02-17 02:00] VITALS: BP 146/70; PULSE 59; RESP 18
[2019-02-17 07:00] VITALS: BP 137/63; PULSE 65; RESP 18
[2019-02-17] MEDS: DOCUSATE SODIUM 100 MG CAP PO SCH ×2 (08:42→21:36)
[2019-02-17] MEDS: CHOLECALCIFEROL 1,000 UNIT TAB PO SCH (08:42)
[2019-02-17] MEDS: RANOLAZINE (SR) 500 MG TAB PO SCH ×2 (08:42→21:36)
[2019-02-17] MEDS: FISH OIL 1,000 MG CAP PO SCH ×2 (08:42→21:35)
[2019-02-17] MEDS: MAGNESIUM CHLORIDE (SR) 64 MG TAB PO SCH ×2 (08:42→21:36)
[2019-02-17] MEDS: SODIUM CHLORIDE 1 GM TAB PO SCH ×2 (08:42→21:35)
[2019-02-17] MEDS: BUSPIRONE 10 MG TAB PO SCH (08:43)
[2019-02-17] MEDS: LOSARTAN 50 MG TAB PO SCH (08:43)
[2019-02-17] MEDS: NIFEdipine (XL) 30 MG TAB PO SCH (08:43)
[2019-02-17] MEDS: RIVAROXABAN 10 MG TABLET PO SCH (08:44)
[2019-02-17] MEDS: HYDROCODONE/APAP (5/325) TAB PO PRN (08:44)
[2019-02-17 14:00] VITALS: BP 129/71; PULSE 63; RESP 18
[2019-02-17 20:34] VITALS: BP 139/65; PULSE 68; RESP 18
[2019-02-17] MEDS: SENNA TAB PO SCH (21:37)
[2019-02-18 02:00] VITALS: BP 132/67; PULSE 72; RESP 18
[2019-02-18 07:00] VITALS: BP 148/69; PULSE 66; RESP 18
[2019-02-18] MEDS: NIFEdipine (XL) 30 MG TAB PO SCH (08:33)
[2019-02-18] MEDS: RIVAROXABAN 10 MG TABLET PO SCH (08:33)
[2019-02-18] MEDS: MAGNESIUM CHLORIDE (SR) 64 MG TAB PO SCH ×2 (08:34→20:58)
[2019-02-18] MEDS: SODIUM CHLORIDE 1 GM TAB PO SCH ×2 (08:34→20:58)
[2019-02-18] MEDS: RANOLAZINE (SR) 500 MG TAB PO SCH ×2 (08:34→20:58)
[2019-02-18] MEDS: BUSPIRONE 10 MG TAB PO SCH (08:34)
[2019-02-18] MEDS: FISH OIL 1,000 MG CAP PO SCH ×2 (08:34→20:57)
[2019-02-18] MEDS: DOCUSATE SODIUM 100 MG CAP PO SCH ×2 (08:35→20:58)
[2019-02-18] MEDS: LOSARTAN 50 MG TAB PO SCH (08:35)
[2019-02-18] MEDS: CHOLECALCIFEROL 1,000 UNIT TAB PO SCH (08:35)
[2019-02-18] MEDS: HYDROCODONE/APAP (5/325) TAB PO PRN (08:46)
[2019-02-18 14:00] VITALS: BP 123/58; PULSE 53; RESP 18
[2019-02-18 19:27] VITALS: BP 140/70; PULSE 68; RESP 18
[2019-02-18] MEDS: SENNA TAB PO SCH (20:57)
[2019-02-19 02:15] VITALS: BP 134/65; PULSE 72; RESP 18
[2019-02-19 07:00] VITALS: BP 132/59; PULSE 66; RESP 18
[2019-02-19] MEDS: HYDROCODONE/APAP (5/325) TAB PO PRN (08:08)
[2019-02-19] MEDS: BUSPIRONE 10 MG TAB PO SCH (09:23)
[2019-02-19] MEDS: CHOLECALCIFEROL 1,000 UNIT TAB PO SCH (09:23)
[2019-02-19] MEDS: SODIUM CHLORIDE 1 GM TAB PO SCH (09:23)
[2019-02-19] MEDS: NIFEdipine (XL) 30 MG TAB PO SCH (09:24)
[2019-02-19] MEDS: RIVAROXABAN 10 MG TABLET PO SCH (09:24)
[2019-02-19] MEDS: RANOLAZINE (SR) 500 MG TAB PO SCH (09:24)
[2019-02-19] MEDS: LOSARTAN 50 MG TAB PO SCH (09:24)
[2019-02-19] MEDS: MAGNESIUM CHLORIDE (SR) 64 MG TAB PO SCH (09:24)
[2019-02-19] MEDS: FISH OIL 1,000 MG CAP PO SCH (09:25)
[2019-02-19] MEDS: DOCUSATE SODIUM 100 MG CAP PO SCH (09:26)
[2019-02-19 14:00] VITALS: BP 155/71; PULSE 68; RESP 18
== END 2019-02-19 15:51 | DRG 560 ==
LOC: VRC 17:48
PROVIDERS: ADMIT Physical Medicine & Rehabilitation; ATTEND Internal Medicine Pulmonary Disease
DX: S32.592D Other specified fracture of left pubis, subsequent encounter for fracture with routine healing (principal); N39.0 Urinary tract infection, site not specified; S32.512D Fracture of superior rim of left pubis, subsequent encounter for fracture with routine healing; S32.10XD Unspecified fracture of sacrum, subsequent encounter for fracture with routine healing; I10 Essential (primary) hypertension; I50.9 Heart failure, unspecified; Z74.09 Other reduced mobility; E78.49 Other hyperlipidemia; I48.0 Paroxysmal atrial fibrillation; E55.9 Vitamin D deficiency, unspecified; I25.10 Atherosclerotic heart disease of native coronary artery without angina pectoris; F32.9 Major depressive disorder, single episode, unspecified; E66.9 Obesity, unspecified; Z68.31 Body mass index [BMI] 31.0-31.9, adult; E83.42 Hypomagnesemia
CPT/HCPCS: 80053; 81003; 83036; 85025; 87081; 87086; 97110; 97116; 97163; 97167; 97530; 97535; J0696